=== PATIENT | female | born 1980 | race Caucasian/White ===

== ENCOUNTER 2019-08-12 14:11 | Emergency (ER) | payer SELFPAY ==
[2019-08-12] MEDS ORDERED: KETOROLAC 30 MG/ML VIAL IVP ONE (14:24)
--- NOTE | 2019-08-12 14:24 | Emergency Department Record ---
History of Present Illness - General Chief Complaint: Chest Pain Stated Complaint: CHEST PAIN Time Seen by Provider: 08/12/19 14:12 Source: Patient, Family Mode of Arrival: Ambulatory Limitations: No limitations - History of Present Illness Initial Comments: 38 yo female presents with about 6 hours of chest pain. She woke up initially a little after 8 and noticed mild pain. She woke again around 12 to 12:30p with increased pain. The pain is right lower to left chest. It aches and is sharp. No cough. No shortness of breath. She denies any significant radiation. She is a non smoker (or very rare social smoker), no history of any cardiopulmonary disease. She is not on any medication. No HTN, DM, elevated cholesterol. No known CAD, PE, SCD in her parents or siblings. No leg pain or edema. The area of the chest hurts to push on and it hurts to move in certain positions. No other recent changes in her health MD Complaint: Chest pain -: Hour(s) (2) Onset: During rest Pain Location: Substernal, Left chest, Right chest Pain Radiation: None Quality: Aching Consistency: Constant Improves With: Nothing Worsens With: Inspiration, Movement, Palpation Context: Other Anginal Symptoms: Other Other Symptoms: Other Treatments Prior to Arrival: None - Related Data Allergies Allergy/AdvReac Type Severity Reaction Status Date / Time Penicillins Allergy PT UNSURE Verified 08/12/19 14:15 OF REACTION sulfamethoxazole Allergy PT UNSURE Verified 08/12/19 14:15 [From ] OF REACTION trimethoprim [From ] Allergy PT UNSURE Verified 08/12/19 14:15 OF REACTION Past Medical History - SOCIAL HISTORY Smoking Status: Never smoker - RESPIRATORY Hx Respiratory Disorders: No - CARDIOVASCULAR Hx Cardio Disorders: No - NEURO Hx Neuro Disorders: No - GI Hx GI Disorders: No - Hx Genitourinary Disorders: No - ENDOCRINE Hx Endocrine Disorders: No - MUSCULOSKELETAL Hx Musculoskeletal Disorders: No - PSYCH Hx Psych Problems: Yes Hx Anxiety: Yes Hx Behavior Problems: Yes (Bi-Polar) - HEMATOLOGY/ONCOLOGY Hx Hematology/Oncology Disorders: No Family Medical History Family Hx Comment (NOT TO BE USED IN PLACE OF ITEMS BELOW): Mom w/bipolar Hx Heart Disease: Grandparents Hx HTN: Mother, Grandparents Physical Exam - General General Appearance: Alert, Oriented x3, Cooperative, No acute distress Limitations: No limitations - Head Head exam: Atraumatic, Normocephalic, Normal inspection - Eye Eye exam: Normal appearance, PERRL. negative: Conjunctival injection, Scleral icterus - ENT ENT exam: Normal exam, Mucous membranes moist Ear exam: Normal external inspection Nasal Exam: Normal inspection Mouth exam: Normal external inspection Teeth exam: negative: Normal inspection (missing on upper incisor - chronic) Throat exam: Normal inspection - Neck Neck exam: Normal inspection, Full ROM. negative: Lymphadenopathy, Tenderness - Respiratory Respiratory exam: Normal lung sounds bilaterally, Chest wall tenderness (Tender mid to lower sternum. The palpation reproduces her pain). negative: Accessory muscle use, Decreased breath sounds, Prolonged expiratory, Respiratory distress, Rhonchi, Stridor, Wheezes - Cardiovascular Cardiovascular Exam: Regular rate, Normal rhythm, Normal heart sounds, Other (She states she has a slight murmur. I do not her one on auscultation). negative: Diastolic murmur, Systolic murmur Peripheral Pulses: 2+: Radial (R), Radial (L) - GI/Abdominal GI/Abdominal exam: Soft. negative: Distended, Guarding, Rebound, Rigid, Tenderness - Rectal Rectal exam: Deferred - exam: Deferred - Extremities Extremities exam: Normal inspection. negative: Calf tenderness, Pedal edema, Tenderness - Back Back exam: Denies: CVA tenderness (R), CVA tenderness (L), Paraspinal tenderness, Tenderness, Vertebral tenderness - Neurological Neurological exam: Alert, Oriented X3 - Psychiatric Psychiatric exam: Normal affect, Normal mood. negative: Agitated, Anxious - Skin Skin exam: Dry, Intact, Normal color, Warm Course - Reevaluation(s) Reevaluation #1: 08/12/19 14:22 Vitals were reviewed No significant abnormalities No tachycardia, hypoxemia, no history of DVT or PE, no recent trauma or surgery, no exogenous estrogen, no leg pain or swelling The examination demonstrates a tender sternum. Reproducible pain with palpation of the parasternal areas bilateral mid to lower sternum She reports a history of a very "mild" murmur. I do not her a murmur on auscultation. She reports in 2018 she had an ECHO in [place] that was normal. No history of cardio-pulmonary disease or traditional risk factors for early CAD, PE. No known congenital abnormalities. PERC negative. 08/12/19 14:24 EKG #1: 14:18 Rate: 67 Rhythm: sinus [place]: normal Intervals: normal ST segments: normal Prior: none 08/12/19 14:30 The CBC was reviewed Mild anemia 08/12/19 15:25 The CXR is negative The patient will be referred to [facility] given she has no family doctor and she is returning to the area 08/12/19 15:32 The BMP is negative The HCG is negative We discussed the results of the test On recheck the pain is still completely reproduced with palpation Repeat BP improved. I recommend long-term monitor through out clinic as well She will be referred to clinic more terminal operator care and monitoring We discussed reasons for immediate return 08/12/19 15:37 Medical Decision Making - Lab Data Result diagrams: 08/12/19 14:40 08/12/19 14:40 Disposition Disposition: Discharge Clinical Impression: Chest wall pain Disposition: Home, Self-Care Condition: (1) Good Instructions: Chest Pain (ED) Additional Instructions: Review this ER visit and the tests performed with your family doctor Call your doctor for the next available follow up appointment Return to the ER for a recheck immediately if worse, any new concerns or questions Take the prescriptions provided as directed Referrals: MICHAELA ORTEGA M.D. [MEDICAL DOCTOR] - Forms: Patient Portal Access Time of Disposition: 15:33 Quality - Quality Measures Quality Measures: N/A - Blood Pressure Screening Does Patient Have Any of the Following: No Blood Pressure Classification: Hypertensive Reading Systolic Measurement: 184 Diastolic Measurement: 98 Screening for High Blood Pressure: < Pre-Hypertensive BP, F/U Documented > [G8950] Pre-Hypertensive Follow-up Interventions: Referral to alternative/primary care provider.
[2019-08-12] MEDS ORDERED: KETOROLAC 30 MG/ML VIAL IM ONE (14:40)
[2019-08-12 14:54] LABS: ABSOLUTE NEUTROPHIL COUNT 3.04; BASO % 0.2 % (0-6); EOS % 2.6 % (0-6); GRAN % 60.2 % (47-80); HEMOGLOBIN 10.8 gm/dl (11.6-16.0); LYMPH % 31.5 % (16-45); MEAN CELL VOLUME 86.4 fl (81-97); MEAN CORPUSCULAR HEMOGLOBIN 26.6 pg (27-33); MEAN CORPUSCULAR HGB CONC 30.9 g/dl (32-36); MEAN PLATELET VOLUME 9.6 fl (7.4-10.4); MONO % 5.5 % (0-9); PLATELET COUNT 116 K/uL (130-400); RED BLOOD COUNT 4.05 M/uL (3.80-5.40); WHITE BLOOD COUNT W/O DIFF 5.1 K/uL (4.2-12.2)
--- NOTE | 2019-08-12 15:22 | RADIOLOGY REPORT ---
EXAMINATION: Two View Chest Radiographs EXAM DATE: 08/12/2019 3:04 PM TECHNIQUE: Frontal and lateral views INDICATION: chest pain COMPARISON: None ENCOUNTER: Not applicable FINDINGS: The heart, mediastinum, and pulmonary vasculature are normal. No lung consolidation or pleural effu sions are present. IMPRESSION: No acute process Dictated by: Dannie Chu MD on 08/12/2019 3:20 PM. .
[2019-08-12 15:24] LABS: BLOOD UREA NITROGEN 13 mg/dL (6-20); CREATININE 0.8 mg/dL (0.5-0.9); EST GLOMERULAR FILTRATION RATE > 60 mL/min
[2019-08-12 15:27] LABS: GLUCOSE,RANDOM 98 mg/dL (74-109)
== END 2019-08-12 16:00 | disposition home or self-care (01) ==
LOC: ER 14:11
DX: R07.89 Other chest pain (principal)
CPT/HCPCS: 99283; 96372; 99284; 85025; 80048; 84703; 71046; 93005; 93010; J1885

== ENCOUNTER 2019-08-14 11:54 | Emergency (ER) | payer SELFPAY ==
[2019-08-14] MEDS ORDERED: ONDANSETRON HCL IV 4 MG/2 ML VIAL IVP ONE (12:16)
[2019-08-14] MEDS ORDERED: ACETAMINOPHEN 1,000 MG/100 ML BTL IVPB ONE (12:16)
[2019-08-14] MEDS ORDERED: MAGNESIUM HYDROXIDE/AL HYDROX 30 ML, LIDOCAINE VISC 2% 15ML 15 ML PO ONE ×2 (12:22)
--- NOTE | 2019-08-14 12:22 | Emergency Department Record ---
History of Present Illness - General Chief Complaint: Chest Pain Stated Complaint: CHEST PAIN,NAUSEA Time Seen by Provider: 08/14/19 12:12 Source: Patient Mode of Arrival: Ambulatory Limitations: No limitations - History of Present Illness Initial Comments: The patient is here due to a 4 day hx of lower chest and upper AP. She was evaluated in the ER for it 2 days ago and had a neg workup. Since she states the pain has returned and is worse with any eating or drinking. The pain is mainly sharp and stabbing in the epigastric area and does intermittently radiate to her chest. She has been nauseated but has not vomited. There is no hx of upper chest pain, SOB, FRYE, or CP with exertion. MD Complaint: Chest pain, Other Onset/Timin -: Days(s) Severity: Moderate Severity scale (1-10): 7 Quality: Dull Consistency: Constant Improves With: Nothing - Related Data Previous Rx's Medication Instructions Recorded Naproxen [Naprosyn] 250 mg PO BID #14 tablet 08/14/19 Allergies Allergy/AdvReac Type Severity Reaction Status Date / Time Penicillins Allergy PT UNSURE Verified 08/14/19 12:08 OF REACTION sulfamethoxazole Allergy PT UNSURE Verified 08/14/19 12:08 [From ] OF REACTION trimethoprim [From ] Allergy PT UNSURE Verified 08/14/19 12:08 OF REACTION Travel Screening - Travel/Exposure Within Last 30 Days Have you traveled within the last 30 days?: No - Travel/Exposure Within Last Year Have you traveled outside the [place] in the last year?: No - Additonal Travel Details Have you been exposed to anyone with a communicable illness?: No - Travel Symptoms Symptom Screening: None Review of Systems Constitutional: Denies: Chills, Fever Eyes: Denies: Eye discharge ENT: Denies: Congestion Respiratory: Denies: Cough Cardiovascular: Reports: Chest pain. Denies: Arrhythmia Endocrine: Denies: Fatigue Gastrointestinal: Reports: Abdominal pain, Nausea. Denies: Diarrhea, Vomiting Genitourinary: Denies: Dysuria, Hematuria Musculoskeletal: Denies: Arthralgia Skin: Denies: Bruising Past Medical History - SOCIAL HISTORY Smoking Status: Never smoker Alcohol Use: Occasional - RESPIRATORY Hx Respiratory Disorders: No - CARDIOVASCULAR Hx Cardio Disorders: No - NEURO Hx Neuro Disorders: No - GI Hx GI Disorders: No Comment:: Hep C - Hx Genitourinary Disorders: No - ENDOCRINE Hx Endocrine Disorders: Yes Hx Thyroid Disease: Yes (hypo not taking medications) - MUSCULOSKELETAL Hx Musculoskeletal Disorders: No - PSYCH Hx Psych Problems: Yes Hx Anxiety: Yes Hx Behavior Problems: Yes (Bi-Polar) - HEMATOLOGY/ONCOLOGY Hx Hematology/Oncology Disorders: No Family Medical History Any Significant Family History?: Yes Family Hx Comment (NOT TO BE USED IN PLACE OF ITEMS BELOW): Mom w/bipolar Hx Heart Disease: Grandparents Hx HTN: Mother, Grandparents Physical Exam - General General Appearance: Alert, Oriented x3, Cooperative, No acute distress - Head Head exam: Atraumatic, Normocephalic, Normal inspection - Eye Eye exam: Normal appearance, PERRL - ENT Throat exam: Normal inspection. negative: Tonsillar erythema, Tonsillar exudate - Neck Neck exam: Normal inspection, Full ROM. negative: Tenderness - Respiratory Respiratory exam: Normal lung sounds bilaterally, Chest wall tenderness (The lower sternum is tender to palpation and does reproduce the patient's pain.). negative: Respiratory distress - Cardiovascular Cardiovascular Exam: Regular rate, Normal rhythm, Normal heart sounds. negative: Diastolic murmur, Systolic murmur - GI/Abdominal GI/Abdominal exam: Soft, Normal bowel sounds, Tenderness (There is mild epigastric and RUQ tenderness.). negative: Distended, Guarding, Rebound, Rigid - Extremities Extremities exam: Normal inspection, Full ROM, Normal capillary refill. negative: Calf tenderness, Pedal edema, Tenderness - Neurological Neurological exam: Alert, Normal gait. negative: Abnormal gait, Motor sensory deficit Course - Reevaluation(s) Reevaluation #1: The patient is doing a lot better at this time. She states the pain is significantly improved and she was sitting on the bed texting when I entered the room. Om exam the abdomen is nontender at this time and the CP is 100% reproducible with sternal palpation and with the patient sitting up and twisting. Since she is significantly improved at this time and the fact that her workup is neg I do feel she is stable for home. I strongly doubt any cardiac or pulmonary issues presently and she does have a HEART Score of 0 so I do feel she is stable for discharge. I also doubt any pulmonary issues like a PE due to the patient not being SOB or having pleuritic pain and also being Low Risk by Wells criteria and PERC neg. 08/14/19 14:46 Medical Decision Making - Data Complexity MDM Data: Labs Ordered and/or Reviewed, X-Ray Ordered and/or Reviewed (Abd US: HUSSAIN WNL's), EKG Ordered and/or Reviewed - Lab Data Result diagrams: 08/14/19 12:19 08/14/19 12:19 - EKG Data -: EKG Interpreted by Me EKG: No Acute Changes, Normal EKG, Unchanged From Previous Disposition Disposition: Discharge Clinical Impression: Chest wall pain Disposition: Home, Self-Care Condition: (2) Stable Instructions: Chest Pain (ED) Additional Instructions: Please take the Naprosyn for pain and off work 2 days. Please try to see your family doctor later this week. Return to the ER for any worsening symptoms, pain, fever, or vomiting. Prescriptions: Naproxen [Naprosyn] 250 mg PO BID #14 tablet Forms: Patient Portal Access Time of Disposition: 14:51 Quality - Quality Measures Quality Measures: N/A - Blood Pressure Screening View Details: Yes Does Patient Have Any of the Following: No Blood Pressure Classification: Pre-Hypertensive BP Reading Systolic Measurement: 132 Diastolic Measurement: 71 Screening for High Blood Pressure: < Pre-Hypertensive BP, F/U Documented > [G8950] Pre-Hypertensive Follow-up Interventions: Referral to alternative/primary care provider.
[2019-08-14 12:58] LABS: ABSOLUTE NEUTROPHIL COUNT 5.36; BASO % 0.4 % (0-6); EOS % 1.3 % (0-6); GRAN % 69.9 % (47-80); HEMATOCRIT 39.5 % (35.0-47.0); HEMOGLOBIN 12.3 gm/dl (11.6-16.0); MEAN CELL VOLUME 86.1 fl (81-97); MEAN CORPUSCULAR HEMOGLOBIN 26.8 pg (27-33); MEAN CORPUSCULAR HGB CONC 31.1 g/dl (32-36); MONO % 6.4 % (0-9); PLATELET COUNT 196 K/uL (130-400); RED BLOOD COUNT 4.59 M/uL (3.80-5.40); WHITE BLOOD COUNT W/O DIFF 7.7 K/uL (4.2-12.2)
[2019-08-14 13:08] LABS: BLOOD UREA NITROGEN 13 mg/dL (6-20); CREATININE 0.7 mg/dL (0.5-0.9); EST GLOMERULAR FILTRATION RATE > 60 mL/min
[2019-08-14 13:10] LABS: LIPASE 24 U/L (13-60); TOTAL PROTEIN 7.1 g/dL (6.6-8.7)
[2019-08-14 13:11] LABS: GLUCOSE,RANDOM 110 mg/dL (74-109)
[2019-08-14 13:14] LABS: ALT/SGPT 10 U/L (<33)
[2019-08-14 13:15] LABS: ALBUMIN 4.1 g/dL (4.0-5.0); ALKALINE PHOSPHATASE 40 U/L (35-104); AST/SGOT 11 U/L (10.0-35.0)
[2019-08-14 13:20] LABS: BILIRUBIN,DIRECT < 0.2 mg/dL (0-0.3)
--- NOTE | 2019-08-14 14:17 | ULTRASOUND REPORT ---
Pick template from RELEVANT SITE autotext(below left screen): "US abdomen ascites" "US abdomen pylorus" "US abdomen hernia" "US abdomen generic" "US abdomen appendix male" "US abdomen appendix female' "US abdomen wall" "US abdomen liver" "US abdomen gallbladder" OR USE VOICE COMMAND: "Powerscribe US abdomen ascites" "Powerscribe US abdomen pylorus" "Powerscribe US abdomen hernia" "Powerscribe US abdomen generic" "Powerscribe US abdomen appendix male" "Powerscribe US abdomen appendix female" "Powerscribe US abdomen wall" "Powerscribe US abdomen liver" "Powerscribe US abdomen gallbladder" EXAMINATION: Right Upper Quadrant Abdomen Ultrasound EXAM DATE: 08/14/2019 2:11 PM TECHNIQUE: Ultrasound of the gallbladder INDICATION: RUQ pain. COMPARISON: None FINDINGS: Liver: The liver is normal in size and echogenicity. No liver masses are present. There is no evid ence of cirrhosis. Gallbladder: Poor visualization the gallbladder secondary to adjacent bowel gas artifact. No definit e gallstones. No definite gallbladder wall thickening. Negative sonographic Wilks sign. Common Bile Duct: The common duct measures 2.5 mm. There is no intrahepatic or extrahepatic bile du ct dilatation. Pancreas: The head and body of the pancreas are normal. The tail is obscured by bowel gas. Right Kidney: There is no hydronephrosis. The size and echogenicity of the kidney is normal. Spleen: The spleen is normal in size and echogenicity. Other Findings: No ascites. Vascular imaging: Not performed. IMPRESSION: No definite abnormality identified. Poor visualization of the gallbladder secondary to bowel gas hosea fact. However, negative sonographic Wilks sign and no dilation of the common bile duct. Dictated by: Delmer Ramirez MD on 08/14/2019 1:50 PM. .
[2019-08-14] MEDS ORDERED: KETOROLAC 30 MG/ML VIAL IVP ONE (14:18)
== END 2019-08-14 15:06 | disposition home or self-care (01) ==
LOC: ER 11:54
DX: R07.89 Other chest pain (principal); R11.0 Nausea; R10.11 Right upper quadrant pain
CPT/HCPCS: 99284 ×2; 96365; 96375; 83690; 85025; 80076; 80048; 84484; 76705; 93005; 93010; J1885; J2405